=== PATIENT | male | born 1945 | race Caucasian/White ===

== ENCOUNTER → 2017-06-07 | Outpatient (CLI) | payer MEDICARE ==
--- NOTE | 2017-06-07 07:11 | MR ---
EXAMINATION TYPE: MR forearm RT wo con DATE OF EXAM: 06/07/2017 COMPARISON: NONE HISTORY: Pain in proximal rt forearm x 2 years, no known injury Standard multiplanar, multisequence MRI departmental protocol Multiplanar, multisequence images of the right forearm were acquired. FINDINGS: Scanning is performed from the distal humeral level through the distal diaphysis of radius and ulna. Bone marrow signal intensity is maintained. No suspicious edema is seen. Some mild spurring at elbow joint is present. Muscle bulk informed is felt maintained. No suspicious skin thickening or soft tissue swelling is see n. No worrisome focal fluid collection is identified. No obvious suspicious solid or cystic mass is p resent on noncontrast images. IMPRESSION: Unremarkable study. No significant finding is seen to account for patient's symptoms.
== END | disposition home or self-care (01) ==
LOC: RADMRIMAIN 06:09
PROVIDERS: ATTEND Orthopaedic Surgery
DX: M79.631 Pain in right forearm (principal); M77.11 Lateral epicondylitis, right elbow

== ENCOUNTER → 2017-11-04 | Outpatient (CLI) | payer MEDICARE ==
--- NOTE | 2017-11-04 15:30 | XR ---
EXAMINATION TYPE: XR chest 2V DATE OF EXAM: 11/04/2017 COMPARISON: NONE HISTORY: Cough for one week TECHNIQUE: Frontal and lateral views of the chest are obtained. FINDINGS: There is no focal air space opacity, pleural effusion, or pneumothorax seen. The cardiac silhouette size is within normal limits. Mild multilevel degenerative changes of the thoracic spine and acromioclavicular joints are noted. The osseous structures are intact. Pulmonary hyperinflation a nd slight flattening of the diaphragm suggests underlying COPD although could be related to degree of inspiration. Correlation with pulmonary function tests is recommended. IMPRESSION: No acute cardiopulmonary process. Correlation with pulmonary function tests is recommend ed to evaluate for underlying COPD.
== END ==
LOC: RADXRMAIN 14:53
PROVIDERS: ATTEND Internal Medicine
DX: R05 Cough (principal)
CPT/HCPCS: 71046

== ENCOUNTER → 2018-03-31 | Outpatient (CLI) | payer MEDICARE ==
[2018-03-31 16:46] LABS: Albumin 4.5 g/dL (3.80-4.90); Albumin/Globulin Ratio 2.5 (1.20-2.10); Anion Gap 4.9 mmol/L (4.00-12.00); Calcium 9.6 mg/dL (8.7-10.3); Carbon Dioxide 28.1 mmol/L (21.6-31.8); Globulin 1.8 g/dL (2.1-3.7); LDL Cholesterol,Calculated 67.4 mg/dL (0.0-131.0); Potassium 4.2 mmol/L (3.5-5.5); Total Bilirubin 1.1 mg/dL (0.2-1.2); Total Protein 6.3 g/dL (6.2-8.2); VLDL Calculation 18.6 mg/dL (5.00-40.00)
[2018-03-31 16:54] LABS: T4, Free (Free Thyroxine) 1.3 ng/dL (0.80-1.80)
== END | disposition home or self-care (01) ==
LOC: LABWHC1 07:28
PROVIDERS: ATTEND Internal Medicine Interventional Cardiology
DX: E78.2 Mixed hyperlipidemia (principal); E04.2 Nontoxic multinodular goiter
CPT/HCPCS: 36415; 80053; 80061; 84439; 84443

== ENCOUNTER → 2019-01-03 | Outpatient (CLI) | payer MEDICARE ==
--- NOTE | 2019-01-03 15:44 | MR ---
EXAMINATION TYPE: MR lumbar spine wo con DATE OF EXAM: 01/03/2019 COMPARISON: HISTORY: Low back pain TECHNIQUE: Multiplanar, multisequence images of the lumbar spine were acquired. Lumbar vertebra have normal alignment. There is slight decreased signal in the disks from L3 to S1. T here are small posterior disc herniations from L3 to S1 without significant impingement on the spinal canal. There is developmentally adequate canal. There is no compression fracture. Posterior elements are intact. The neuroforamina are generally well-maintained. Sacroiliac joints are intact. There is no lumbar paraspinal mass. I see no focal bone destruction. There is very slight narrowing of the rig ht side L5-S1 neural foramen due to facet disease and disc bulging. IMPRESSION: Spondylotic changes from L3 to S1 with small posterior disc herniations. No spinal stenosis. No fract ure. Very slight neural foraminal narrowing on the right side at L5-S1
== END | disposition home or self-care (01) ==
LOC: RADMRIMAIN 07:02
PROVIDERS: ATTEND Internal Medicine
DX: M48.07 Spinal stenosis, lumbosacral region (principal); M51.27 Other intervertebral disc displacement, lumbosacral region; M47.817 Spondylosis without myelopathy or radiculopathy, lumbosacral region
CPT/HCPCS: 72148

== ENCOUNTER → 2020-04-13 | Outpatient (CLI) | payer MEDICARE ==
--- NOTE | 2020-04-14 06:51 | MR ---
EXAMINATION TYPE: MR shoulder LT wo con DATE OF EXAM: 04/13/2020 COMPARISON: None. HISTORY: Pain in left shoulder and impingement. TECHNIQUE: Multiplanar, multisequence imaging of the left shoulder is performed without contrast. FINDINGS: Rotator Cuff: Full thickness retracted tear supraspinatus tendon to level of acromioclavicular joint coronal image 15. Fluid cleft noted. Infraspinatus tendon is intact. Subscapularis tendon intact. Mil d atrophy of supraspinatus muscle bulk. Acromioclavicular Joint: Moderate capsular hypertrophy and spurring. Loss of underlying fat plane and coronal image 9. Distal acromion morphology unremarkable. Glenohumeral Joint: Mild to moderate narrowing with tiny effusion. No significant spurring. Labrum: Superior labrum shows some increased signal consistent with degenerative tear coronal image 1 2. Biceps Tendon: The long head of biceps is in normal location within bicipital groove. Bone marrow signal: Tiny subchondral cystic change superolateral humeral head. Other: No additional significant abnormality is appreciated. IMPRESSION: AC joint arthropathy with underlying impingement. Full-thickness retracted tear supraspin atus tendon.
== END | disposition home or self-care (01) ==
LOC: RADMRIMAIN 17:54
PROVIDERS: ATTEND Orthopaedic Surgery
DX: M75.102 Unspecified rotator cuff tear or rupture of left shoulder, not specified as traumatic (principal); M19.012 Primary osteoarthritis, left shoulder

== ENCOUNTER → 2020-05-03 | Outpatient (CLI) | payer MEDICARE ==
[2020-05-03 12:58] LABS: African American GFR (CKD) 86.8 (60.0-200.0); Albumin 4.6 g/dL (3.80-4.90); Albumin/Globulin Ratio 2.42 (1.60-3.17); Anion Gap 7.2 mmol/L (4.00-12.00); Calcium 9.5 mg/dL (8.7-10.3); Carbon Dioxide 27.8 mmol/L (21.6-31.8); Chol/HDL Ratio 3.6; Globulin 1.9 g/dL (1.6-3.3); LDL Cholesterol,Calculated 73.2 mg/dL (0.0-131.0); Non-African American GFR(CKD) 74.9 (60.0-200.0); Potassium 4.2 mmol/L (3.5-5.5); Total Bilirubin 0.9 mg/dL (0.3-1.2); Total Protein 6.5 g/dL (6.2-8.2); VLDL Calculation 17.8 mg/dL (5.00-40.00)
[2020-05-03 13:04] LABS: T4, Free (Free Thyroxine) 1.2 ng/dL (0.80-1.80)
== END | disposition home or self-care (01) ==
LOC: LABWHC1 07:13
PROVIDERS: ATTEND Internal Medicine Interventional Cardiology
DX: E04.2 Nontoxic multinodular goiter (principal); E78.2 Mixed hyperlipidemia
CPT/HCPCS: 36415; 80053; 80061; 84439; 84443

== ENCOUNTER → 2020-05-04 | Outpatient (CLI) | payer MEDICARE ==
--- NOTE | 2020-05-04 07:48 | US ---
EXAMINATION TYPE: US thyroid st tissue head/neck DATE OF EXAM: 05/04/2020 COMPARISON: US November 30, 2013 CLINICAL HISTORY: E04.2 NONTOXIC MULTINODULAR GOITER. GLAND SIZE: Right Lobe: 5.7 x 3.3 x 3.3 cm Overall Parenchyma: heterogenous Left Lobe: 4.1 x 1.7 x 1.1 cm Overall Parenchyma: homogeneous Isthmus Thickness: 0.2 cm NODULES RIGHT: # of nodules measured on right: 0 Entire gland is heterogeneous without any normal tissue identified. LEFT: # of nodules measured on left: 1 1. 1.4 X 0.9 x 1.2 cm solid or almost completely solid, hypoechoic nodule, which is wider than tall , with smooth margins, with echogenic foci. Prior size: 1.0 x 0.8 x 0.8 cm Bilateral neck scanned, no evidence of lymphadenopathy. Markedly heterogeneous thyroid redemonstrated with asymmetric enlarged right thyroid lobe on current study. The lower pole left thyroid lobe solid nodule fairly stable when accounting for technical diff erences and was sampled in 2013. IMPRESSION: As above. No new concerning focal nodules identified.
== END | disposition home or self-care (01) ==
LOC: RADUSWWP 07:02
PROVIDERS: ATTEND Internal Medicine
DX: E04.1 Nontoxic single thyroid nodule (principal); E04.9 Nontoxic goiter, unspecified; E07.89 Other specified disorders of thyroid
CPT/HCPCS: 76536

== ENCOUNTER → 2020-10-31 | Outpatient (CLI) | payer MEDICARE ==
[2020-10-31 11:16] LABS: Chol/HDL Ratio 4.14
== END ==
LOC: LABWHC1 08:00
PROVIDERS: ATTEND Nurse Practitioner Adult Health
DX: E78.2 Mixed hyperlipidemia (principal)
CPT/HCPCS: 36415; 80061; 84450; 84460

== ENCOUNTER → 2021-03-08 | Outpatient (CLI) | payer MEDICARE ==
[2021-03-08 16:23] LABS: Chol/HDL Ratio 3.05 Ratio; HDL Cholesterol 41.7 mg/dL (40.00-60.00); LDL Cholesterol,Calculated 70.4 mg/dL (0.0-131.0); Triglycerides 74.7 mg/dL (0.00-149.00); VLDL Calculation 14.94 mg/dL (5.00-40.00)
== END | disposition home or self-care (01) ==
LOC: LABWHC1 07:42
PROVIDERS: ATTEND Nurse Practitioner Adult Health
DX: E78.2 Mixed hyperlipidemia (principal)
CPT/HCPCS: 36415; 80061; 84450; 84460

== ENCOUNTER 2021-03-15 10:15 | Day surgery (SDC) | payer MEDICARE ==
[2021-03-14 08:52] VITALS: BMI 22.8
[~2021-03-15 10:15] MED LIST: LACTATED RINGERS 1,000 ML IV SCH; LIDOCAINE 1% (10MG/ML) FOR IV START INTRADERMA PRN
[2021-03-15 10:44] VITALS: RESP 16; TEMP 97.8
[2021-03-15] MEDS ORDERED: PROPOFOL 10 MG/ML 20 ML VIAL IV ONE (11:18)
--- NOTE | 2021-03-15 11:54 | P.PCN ---
Date of Procedure: 03/15/21 Procedure(s) Performed: BRIEF HISTORY: Patient is a 75-year-old pleasant white male scheduled for an elective colonoscopy as a part of evaluation of prior history of colon polyps PROCEDURE PERFORMED: Colonoscopy. PREOPERATIVE DIAGNOSIS: History of colon polyps. IV sedation per Anesthesia. PROCEDURE: After informed consent was obtained, the patient, was brought into the endoscopy unit. IV sedation was administered by Anesthesia under continuous monitoring. Digital rectal examination was normal. Initially the Olympus CF-160 flexible video colonoscope was then inserted in the rectum, gradually advanced into the cecum without any difficulty. Careful examination was performed as the scope was gradually being withdrawn. Ileocecal valve and the appendiceal orifice were visualized and appeared normal. Prep was excellent. Mucosa of the cecum, ascending colon, transverse colon, descending colon, sigmoid colon, and rectum appeared normal. Retroflexion was performed in the rectum and monitor hemorrhoids were seen. The patient tolerated the procedure well. IMPRESSION: Normal-appearing colon from rectum to cecum with no evidence of colorectal neoplasia . RECOMMENDATIONS: Findings of this examination were discussed with the patient well as her family. He was advised to have a repeat colonoscopy in 5 years from now because of the prior history of colon polyps.
[2021-03-15 12:22] VITALS: BP 123/75; PULSE 61
== END 2021-03-15 12:43 | disposition home or self-care (01) ==
LOC: ORWHC2ENDO 10:15
PROVIDERS: ATTEND Internal Medicine Gastroenterology
DX: Z12.11 Encounter for screening for malignant neoplasm of colon (principal); Z86.010 Personal history of colon polyps; Z79.82 Long term (current) use of aspirin; Z79.899 Other long term (current) drug therapy; I10 Essential (primary) hypertension; Z98.42 Cataract extraction status, left eye; Z98.41 Cataract extraction status, right eye; Z98.890 Other specified postprocedural states
CPT/HCPCS: J2704; G0105; 45378

== ENCOUNTER → 2023-03-26 | Outpatient (CLI) | payer MEDICARE ==
[2023-03-26 11:13] LABS: ALT 15 U/L (10-49); AST 17 U/L (14-35); Albumin 4.5 g/dL (3.8-4.9); Albumin/Globulin Ratio 2.14 Ratio (1.60-3.17); Alkaline Phosphatase 62 U/L (41-126); BUN/Creat Ratio 17.42 Ratio (12.00-20.00); Blood Urea Nitrogen 20.9 mg/dL (9.0-27.0); Calcium 10.1 mg/dL (8.7-10.3); Carbon Dioxide 27.1 mmol/L (21.6-31.8); Chloride 106 mmol/L (96-109); Chol/HDL Ratio 3.42 Ratio; Globulin 2.1 g/dL (1.6-3.3); Glucose 143 mg/dL (70-110); LDL Cholesterol,Calculated 71.5 mg/dL (0.0-131.0); Potassium 4.7 mmol/L (3.5-5.5); Sodium 143 mmol/L (135-145); Total Bilirubin 0.4 mg/dL (0.3-1.2); Total Protein 6.6 g/dL (6.2-8.2)
== END | disposition home or self-care (01) ==
LOC: LABWHC1 07:34
PROVIDERS: ATTEND Internal Medicine Interventional Cardiology
DX: E78.2 Mixed hyperlipidemia (principal)
CPT/HCPCS: 36415; 80053; 80061

== ENCOUNTER → 2023-05-07 | Outpatient (CLI) | payer MEDICARE ==
[2023-05-07 10:48] LABS: HCT 39.8 % (39.6-50.0); HGB 13.8 g/dL (13.0-17.0); MCHC 34.7 g/dL (32.0-37.0); MCV 106.7 FL (80.0-97.0); Mean Platelet Volume 9.7 FL (9.5-12.2); NRBC Per 100 WBC 0 X 10*3/uL (0.00-0.01); Platelet Count 184 X 10*3/uL (140-440); RBC 3.73 X 10*6/uL (4.40-5.60); RDW 12.7 % (11.5-14.5); WBC 6.16 X 10*3/uL (4.50-10.00)
[2023-05-07 11:21] LABS: Basophils # (A) 0.04 X 10*3/uL (0.00-0.10); Basophils % (A) 0.6 %; Elliptocytes 2+; Eosinophils # (A) 0.31 X 10*3/uL (0.04-0.35); Lymphocytes # (A) 2.68 X 10*3/uL (0.90-5.00); Lymphocytes % (A) 43.5 %; Macrocytosis (M) 2+; Monocytes # (A) 0.46 X 10*3/uL (0.20-1.00); Monocytes % (A) 7.5 %; Neutrophils # (A) 2.65 X 10*3/uL (1.80-7.70); Neutrophils % (A) 43.1 %
[2023-05-07 11:31] LABS: ALT 16 U/L (10-49); AST 21 U/L (14-35); Albumin 4.5 g/dL (3.8-4.9); Albumin/Globulin Ratio 1.96 Ratio (1.60-3.17); Alkaline Phosphatase 67 U/L (41-126); Blood Urea Nitrogen 20.4 mg/dL (9.0-27.0); Calcium 10.1 mg/dL (8.7-10.3); Carbon Dioxide 26.4 mmol/L (21.6-31.8); Chloride 107 mmol/L (96-109); Chol/HDL Ratio 3.04 Ratio; Globulin 2.3 g/dL (1.6-3.3); Glucose 145 mg/dL (70-110); LDL Cholesterol,Calculated 73.3 mg/dL (0.0-131.0); Potassium 4.6 mmol/L (3.5-5.5); Sodium 144 mmol/L (135-145); Total Bilirubin 0.6 mg/dL (0.3-1.2); Total Protein 6.8 g/dL (6.2-8.2); VLDL Calculation 18.02 mg/dL (5.00-40.00)
== END | disposition home or self-care (01) ==
LOC: LABWHC1 07:21
PROVIDERS: ATTEND Internal Medicine Interventional Cardiology
DX: Z01.812 Encounter for preprocedural laboratory examination (principal); E78.2 Mixed hyperlipidemia; E11.9 Type 2 diabetes mellitus without complications; I25.10 Atherosclerotic heart disease of native coronary artery without angina pectoris; R07.9 Chest pain, unspecified
CPT/HCPCS: 80053; 80061; 82306; 83036; 84443; 85025

== ENCOUNTER 2023-05-08 06:22 | Day surgery (SDC) | payer MEDICARE ==
[2023-05-03 14:45] VITALS: BMI 21.2
[~2023-05-08 06:22] MED LIST changes: +ALPRAZolam 0.25 MG TAB PO PRN; +ALPRAZolam 0.5 MG TAB PO PRN; +ASPIRIN 325 MG TAB PO STA; +HEPARIN SODIUM,PORCINE (1 ML) 2,500 UNIT in SODIUM CHLORIDE 0.9% 250 ML IRRIGATION PRN; +HEPARIN SODIUM,PORCINE 10,000 UNIT in SODIUM CHLORIDE 0.9% 1,000 ML IRRIGATION PRN; -LACTATED RINGERS 1,000 ML IV SCH; -LIDOCAINE 1% (10MG/ML) FOR IV START INTRADERMA PRN; +NITROGLYCERIN SL TABS 0.4 MG TAB SUBLINGUAL PRN; +SODIUM CHLORIDE 0.9% 1,000 ML in EMPTY BAG 1 BAG IV SCH
[2023-05-08] MEDS: SODIUM CHLORIDE 0.9% 1,000 ML IV ONE (06:40)
[2023-05-08 07:02] LABS: Glucose,Whole Blood 131 mg/dL (70-110)
[2023-05-08 07:05] VITALS: RESP 16; TEMP 97.7
[2023-05-08] MEDS ORDERED: VERAPAMIL 2.5 MG/ML 2 ML AMP ONE (07:28)
[2023-05-08] MEDS ORDERED: fentaNYL (PF) 50 MCG/ML 2 ML AMP ONE (07:28)
[2023-05-08] MEDS ORDERED: LIDOCAINE 1% INJ 10MG/ML (20 ML MDV) ONE (07:28)
[2023-05-08] MEDS ORDERED: HEPARIN SODIUM 1,000 UN/ML (10ML VL) ONE (07:28)
[2023-05-08] MEDS: fentaNYL (PF) 50 MCG/ML 2 ML AMP IVP ONE (07:39)
[2023-05-08] MEDS: METOPROLOL TARTRATE 12.5 MG TAB PO STA (07:39)
[2023-05-08] MEDS: ISOSORBIDE MONONITRATE ER 30 MG TAB.ER.24H PO STA (07:39)
[2023-05-08] MEDS: LIDOCAINE 1% INJ 10MG/ML (20 ML MDV) SQ ONE (07:43)
[2023-05-08] MEDS: VERAPAMIL SYRINGE (5 MG/10 ML) INTRAARTER ONE (07:45)
[2023-05-08] MEDS: HEPARIN SODIUM 1,000 UN/ML (10ML VL) IV ONE (07:48)
[2023-05-08] MEDS ORDERED: CLOPIDOGREL 75 MG TAB ONE (07:53)
[2023-05-08] MEDS: CLOPIDOGREL 75 MG TAB PO ONE (07:55)
[2023-05-08] MEDS: NITROGLYCERIN 1000MCG/10ML SYRINGE INTRACORON ONE (08:03)
[2023-05-08] MEDS: IOPAMIDOL-370 100ML BTL INJ ONE ×2 (08:11→08:25)
[2023-05-08] MEDS ORDERED: ZOLPIDEM 5 MG TAB PO PRN (08:39)
[2023-05-08] MEDS ORDERED: NITROGLYCERIN SL TABS 0.4 MG TAB SUBLINGUAL PRN (08:39)
[2023-05-08] MEDS ORDERED: RX INFO: IV CONTRAST WAS GIVEN 1 EACH MISC MISCELLANE PRN (08:39)
[2023-05-08] MEDS ORDERED: MAG HYDROX/AL HYDROX/SIMETH 30 ML CUP PO PRN (08:39)
[2023-05-08] MEDS ORDERED: ATROPINE SULFATE 0.1 MG/ML 10ML SYRINGE IV PRN (08:39)
[2023-05-08] MEDS ORDERED: SODIUM CHLORIDE 0.9% 1,000 ML in EMPTY BAG 1 BAG IV SCH (08:45)
--- NOTE | 2023-05-08 08:54 | P.CARDCATH ---
Date of Procedure: 05/08/23 Description of Procedure: Cardiac Catheterization: The patient is a 77-year-old male with a known history of CAD who has been complaining of recent onset chest discomfort, exertional and with minimal activity. Recommendations were made regarding cardiac catheterization, the risks and the complications were discussed with the patient who is in full understanding and agreement. 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 Using Xylocaine Anesthesia and modified Seldinger technique, a 6-Niuean sheath was introduced in the right radial artery . Subsequently, selective coronary angiography was performed using a 5-Niuean 3.5 bend Collin catheter. Multiple views of the coronary artery including hemiaxial views were obtained. The 5-Niuean pigtail catheter was used to cross the aortic valve and LVEDP was calculated. PCI: After removing the catheters a 6-Niuean CLS 3.5 guiding catheter was introduced and the left main was cannulated. Subsequently 0.014 BMW J-wire was positioned in the distal LAD. A 2.25 x 12 mm NC Treck balloon was advanced and one inflation at 8 mirela was done. Subsequently a [employer] [place] eye IVUS catheter was introduced and images were obtained. After removing the catheter a 3.0 X23 mm Xience [place] stent was advanced and deployed at 16 mirela. After removing the balloon repeat IVUS imaging was performed and subsequently a 4.0 x 8 mm NC Treck balloon was advanced and one inflation in the proximal segment at 8 mirela was done. After removing the wire and the balloon images were obtained and revealed stable successful stenting. Following that, catheter and sheath were removed. Hemostasis was obtained with deployment of vascular band . There was no immediate complication. Patient was returned to room in stable condition. Of note, the patient received a total of 65 units of intravenous heparin as well as intra-arterial verapamil. He received an oral loading dose of clopidogrel. His ACT was monitored. He had chest discomfort and EKG changes with the inflations that resolved at the end of the procedure. Findings: Left main: This is a large size vessel, bifurcating into LAD and left circumflex, left main has no obstructive disease LAD: This is a large size vessel giving rise to a large diagonal branch proximally. After the diagonal takeoff there is a 99% stenosis. The rest of the vessel has no high-grade stenosis Left circumflex: This is a nondominant vessel, large in caliber, giving rise to a large obtuse marginal branch that has a 10-20% plaque, the rest of the vessel has no high-grade stenosis RCA: This is a moderately size dominant vessel. The stented segment in the distal LAD has tubular lesion of restenosis of 30%. There is no evidence of high-grade stenosis. Left Ventriculogram: Not performed Hemodynamics: There was no gradient across the aortic valve, LVEDP was 12-16 mmHg Conclusion: 1. Severe stenosis in the proximal LAD 2. Mild to moderate in-stent restenosis of the RCA 3. Mild disease in the left circumflex 4. Successful stenting of the proximal LAD with reduction of stenosis from 99% to 0% with intravascular ultrasound imaging Recommendations: The patient will continue on aspirin and Plavix without any interruption for 6 months in addition to aggressive coronary risks modifications. We will attempt to maintain LDL below 70 mg/dL. The findings and the recommendations were discussed with the patient and the family and they were in full understanding and agreement. Duration of sedation is 44 minutes.
[2023-05-08] MEDS: ACETAMINOPHEN TAB 500 MG TAB PO ONE (10:23)
[2023-05-08 13:03] VITALS: BP 142/68; PULSE 66
[2023-05-08] MEDS ORDERED: METOPROLOL TARTRATE 12.5 MG TAB PO SCH (21:00)
[2023-05-08] MEDS ORDERED: ATORVASTATIN 40 MG TAB PO SCH (21:00)
[2023-05-09] MEDS ORDERED: CLOPIDOGREL 75 MG TAB PO SCH (09:00)
[2023-05-09] MEDS ORDERED: ASPIRIN 81 MG PO SCH (09:00)
== END 2023-05-08 13:05 | disposition home or self-care (01) ==
LOC: CATHCVL 06:22
PROVIDERS: ATTEND Internal Medicine Interventional Cardiology
DX: I25.10 Atherosclerotic heart disease of native coronary artery without angina pectoris (principal); E78.5 Hyperlipidemia, unspecified; E11.9 Type 2 diabetes mellitus without complications; Z79.82 Long term (current) use of aspirin; Z79.899 Other long term (current) drug therapy; Z79.84 Long term (current) use of oral hypoglycemic drugs
CPT/HCPCS: 99152; 99153 ×2; 92978; 93458; C9600; C1769 ×3; C1887; C1894; C1753; C1874; C1725 ×2; J2001; J3010; J1644; Q9967; J2305

== ENCOUNTER → 2023-08-13 | Outpatient (CLI) | payer MEDICARE ==
[2023-08-13 12:34] LABS: ALT 21 U/L (10-49); AST 20 U/L (14-35); Albumin 4.3 g/dL (3.8-4.9); Albumin/Globulin Ratio 1.65 Ratio (1.60-3.17); Alkaline Phosphatase 73 U/L (41-126); BUN/Creat Ratio 18.33 Ratio (12.00-20.00); Calcium 10.2 mg/dL (8.7-10.3); Carbon Dioxide 27.4 mmol/L (21.6-31.8); Chloride 107 mmol/L (96-109); Chol/HDL Ratio 3.51 Ratio; Globulin 2.6 g/dL (1.6-3.3); Glucose 145 mg/dL (70-110); LDL Cholesterol,Calculated 70.9 mg/dL (0.0-131.0); Potassium 5.2 mmol/L (3.5-5.5); Sodium 143 mmol/L (135-145); Total Bilirubin 0.5 mg/dL (0.3-1.2); Total Protein 6.9 g/dL (6.2-8.2)
== END | disposition home or self-care (01) ==
LOC: LABWHC1 07:43
PROVIDERS: ATTEND Internal Medicine Interventional Cardiology
DX: E78.2 Mixed hyperlipidemia (principal)
CPT/HCPCS: 36415; 80053; 80061

== ENCOUNTER → 2023-09-26 | Outpatient (CLI) | payer MEDICARE ==
[2023-09-26 15:36] LABS: T4, Free (Free Thyroxine) 1.57 ng/dL (0.80-1.80)
== END | disposition home or self-care (01) ==
LOC: LABWHC1 08:04
PROVIDERS: ATTEND Internal Medicine
DX: E05.90 Thyrotoxicosis, unspecified without thyrotoxic crisis or storm (principal)
CPT/HCPCS: 36415; 84439; 84443; 84445; 84481; 86376

== ENCOUNTER 2024-03-04 05:38 | Day surgery (SDC) | payer MEDICARE ==
[2024-03-02 17:49] VITALS: BMI 21.6
[2024-03-04] MEDS ORDERED: ALPRAZolam 0.25 MG TAB PO PRN (06:09)
[2024-03-04] MEDS ORDERED: ALPRAZolam 0.5 MG TAB PO PRN (06:09)
[2024-03-04] MEDS ORDERED: NITROGLYCERIN SL TABS 0.4 MG TAB SUBLINGUAL PRN (06:09)
[2024-03-04] MEDS: SODIUM CHLORIDE 0.9% 1,000 ML in EMPTY BAG 1 BAG IV SCH (06:31)
[2024-03-04] MEDS: SODIUM CHLORIDE 0.9% 1,000 ML IV ONE (06:32)
[2024-03-04 06:36] VITALS: TEMP 98
[2024-03-04 06:37] LABS: Glucose,Whole Blood 123 mg/dL (70-110)
[2024-03-04 06:38] LABS: Basophils % (A) 0 %; Eosinophils # (A) 0.4 k/uL (0-0.7); Eosinophils % (A) 6 %; HCT 39.6 % (39.0-53.0); HGB 13.1 gm/dL (13.0-17.5); Lymphocytes # (A) 2.6 k/uL (1.0-4.8); Lymphocytes % (A) 39 %; MCH 35.7 pg (25.0-35.0); MCV 108.4 fL (80.0-100.0); Macrocytosis Moderate; Mean Platelet Volume 7.3; Monocytes # (A) 0.4 k/uL (0-1.0); Monocytes % (A) 6 %; Neutrophils # (A) 3.1 k/uL (1.3-7.7); Neutrophils % (A) 46 %; Platelet Count 177 k/uL (150-450); RBC 3.66 m/uL (4.30-5.90); RDW 12.6 % (11.5-15.5); WBC 6.7 k/uL (3.8-10.6)
[2024-03-04] MEDS ORDERED: HEPARIN SODIUM,PORCINE 10,000 UNIT in SODIUM CHLORIDE 0.9% 1,000 ML IRRIGATION PRN (07:00)
[2024-03-04] MEDS ORDERED: HEPARIN SODIUM,PORCINE (1 ML) 2,500 UNIT in SODIUM CHLORIDE 0.9% 250 ML IRRIGATION PRN (07:00)
[2024-03-04] MEDS ORDERED: ASPIRIN 325 MG TAB PO ONE (07:00)
[2024-03-04] MEDS ORDERED: ATORVASTATIN 80 MG TAB PO ONE (07:00)
[2024-03-04 07:01] LABS: African American GFR (CKD) 76 (>60 ml/min/1.73 sqM); Anion Gap 6 mmol/L; Blood Urea Nitrogen 21 mg/dL (9-20); Calcium 9.6 mg/dL (8.4-10.2); Carbon Dioxide 26 mmol/L (22-30); Chloride 108 mmol/L (98-107); Glucose 124 mg/dL (74-99); Non-African American GFR(CKD) 66 (>60 ml/min/1.73 sqM); Potassium 3.8 mmol/L (3.5-5.1); Sodium 140 mmol/L (137-145)
[2024-03-04] MEDS: fentaNYL (PF) 50 MCG/ML 2 ML AMP IVP ONE (07:30)
[2024-03-04] MEDS: LIDOCAINE 1% INJ 10MG/ML (20 ML MDV) SQ ONE (07:32)
[2024-03-04] MEDS: VERAPAMIL SYRINGE (5 MG/10 ML) INTRAARTER ONE (07:35)
[2024-03-04] MEDS: HEPARIN SODIUM 1,000 UN/ML (10ML VL) IVP ONE (07:38)
[2024-03-04] MEDS: HEPARIN SODIUM,PORCINE (1 ML) 2,500 UNIT in SODIUM CHLORIDE 0.9% 250 ML IRRIGATION ONE (07:46)
[2024-03-04] MEDS: HEPARIN SODIUM,PORCINE 10,000 UNIT in SODIUM CHLORIDE 0.9% 1,000 ML IRRIGATION ONE (07:46)
[2024-03-04] MEDS: IOPAMIDOL-370 100ML BTL INJ ONE (07:50)
[2024-03-04] MEDS ORDERED: RX INFO: IV CONTRAST WAS GIVEN 1 EACH MISC MISCELLANE PRN (08:10)
[2024-03-04] MEDS ORDERED: SODIUM CHLORIDE 0.9% 1,000 ML IV SCH (08:15)
--- NOTE | 2024-03-04 08:19 | P.CARDCATH ---
Date of Procedure: 03/04/24 Description of Procedure: Cardiac Catheterization: The patient is a 78-year-old male with known history of diabetes, hyperlipidemia, known history of CAD status post stenting of the RCA in 1998 and stenting of the proximal LAD in April 2023 who presented with symptoms of recurrent exertional chest discomfort over the last few weeks. Recommendations were made regarding cardiac catheterization, the risks and the complications were discussed with the patient who is in full understanding and agreement. 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 Using Xylocaine Anesthesia and modified Seldinger technique, a 6-Ecuadorean sheath was introduced in the right radial artery . Subsequently, selective coronary angiography was performed using a 5-Ecuadorean 3.5 bend Collin catheter. Multiple views of the coronary artery including hemiaxial views were obtained. The 6 Ecuadorean pigtail catheter was used to cross the aortic valve and LVEDP was calculated. Following that, catheter and sheath were removed. Hemostasis was obtained with deployment of vascular band . There was no immediate complication. Patient was returned to room in stable condition. Of note, the patient received a total of 3500 units of intravenous heparin as well as intra-arterial verapamil. Findings: Left main: This is a large size vessel, bifurcating into LAD and left circumflex, left main has no obstructive disease LAD: This is a large size vessel, reaching to the apex with a wraparound apex segment. The stented segment in the proximal LAD is patent. Proximal to the stent there is a 20 to 30% plaque. The mid and distal vessel is diffusely disease with no focal disease in the area of stenosis up to 60%. The takeoff of the first obtuse marginal branch which is moderate in caliber has an 80 to 90% stenosis, it is jailed in the stent. It has a JANICE-3 flow. Left circumflex: This is a nondominant vessel, large in caliber, giving rise to a large obtuse marginal branch, the left circumflex and its branches have no significant obstructive disease RCA: This is a large dominant vessel, giving rise to a PDA distally. The stented segment in the distal RCA is patent there is a 50 to 60% tubular in-sten t restenosis with no progression of disease compared to 2023 Left Ventriculogram: Not performed Hemodynamics: There was no gradient across aortic valve, LVEDP was 14-16 mmHg Conclusion: 1. Patent stent in the proximal LAD with evidence of diffuse disease distally and significant disease at the ostium of the diagonal branch and no progression compared to April 2023 2. Moderate in-stent restenosis of the distal RCA with no changes since April 3. No high-grade stenosis in the left circumflex 4. Right dominance Recommendations: I have recommended to optimize medical therapy at this time, patient could not tolerate nitrate in the past, ranolazine will be added to his regimen. Depending on his symptoms further recommendations will be made. The findings and the recommendations were discussed with the patient and the family and they were in full understanding and agreement. Duration of sedation is 19 minutes.
[2024-03-04] MEDS ORDERED: RANOLAZINE 500 MG TAB.ER.12H PO SCH (09:00)
[2024-03-04] MEDS ORDERED: METOPROLOL TARTRATE 12.5 MG TAB PO SCH (09:00)
[2024-03-04 12:03] VITALS: RESP 16
[2024-03-04 12:06] VITALS: BP 106/55; PULSE 56
[2024-03-05] MEDS ORDERED: ASPIRIN 81 MG PO SCH (21:00)
[2024-03-05] MEDS ORDERED: ATORVASTATIN 40 MG TAB PO SCH (21:00)
== END 2024-03-04 12:00 | disposition home or self-care (01) ==
LOC: CATHCVL 05:38
PROVIDERS: ATTEND Internal Medicine Interventional Cardiology
DX: I25.10 Atherosclerotic heart disease of native coronary artery without angina pectoris (principal); E11.9 Type 2 diabetes mellitus without complications; E78.2 Mixed hyperlipidemia; Z95.5 Presence of coronary angioplasty implant and graft; Z79.82 Long term (current) use of aspirin; Z79.02 Long term (current) use of antithrombotics/antiplatelets; Z79.84 Long term (current) use of oral hypoglycemic drugs; Z79.899 Other long term (current) drug therapy
CPT/HCPCS: 93458; 80048; 85025; C1769 ×2; C1894; J1644 ×3; J2003; J3010; Q9967

== ENCOUNTER 2024-11-11 08:31 | Day surgery (SDC) | payer MEDICARE ==
[~2024-11-11 08:31] MED LIST changes: -ASPIRIN 325 MG TAB PO STA; -HEPARIN SODIUM,PORCINE (1 ML) 2,500 UNIT in SODIUM CHLORIDE 0.9% 250 ML IRRIGATION PRN; -HEPARIN SODIUM,PORCINE 10,000 UNIT in SODIUM CHLORIDE 0.9% 1,000 ML IRRIGATION PRN; -SODIUM CHLORIDE 0.9% 1,000 ML in EMPTY BAG 1 BAG IV SCH
[2024-11-11 09:02] LABS: Glucose,Whole Blood 133 mg/dL (70-110)
[2024-11-11] MEDS: SODIUM CHLORIDE 0.9% 1,000 ML in EMPTY BAG 1 BAG IV SCH ×2 (09:03→17:33)
[2024-11-11] MEDS: ASPIRIN 325 MG TAB PO STA (09:03)
[2024-11-11] MEDS: IV FLUID CONTINUATION 1,000 ML IV ONE (09:07)
[2024-11-11 09:12] LABS: Basophils # (A) 0.03 10*3/uL (0.00-0.10); Basophils % (A) 0.4 %; Eosinophils # (A) 0.20 10*3/uL (0.04-0.35); Eosinophils % (A) 2.8 %; HCT 36.7 % (39.6-50.0); HGB 13.0 g/dL (13.0-17.0); Lymphocytes # (A) 2.06 10*3/uL (0.90-5.00); Lymphocytes % (A) 28.6 %; MCH 38.0 pg (27.0-32.0); MCHC 35.4 g/dL (32.0-37.0); MCV 107.3 fL (80.0-97.0); Monocytes # (A) 0.55 10*3/uL (0.20-1.00); Monocytes % (A) 7.6 %; Neutrophils # (A) 4.35 10*3/uL (1.80-7.70); Neutrophils % (A) 60.5 %; Platelet Count 171 10*3/uL (140-440); RBC 3.42 10*6/uL (4.40-5.60); RDW 12.3 % (11.5-14.5); WBC 7.20 10*3/uL (4.50-10.00)
[2024-11-11 09:23] LABS: African American GFR (CKD) 79 (>60 ml/min/1.73 sqM); Anion Gap 10 mmol/L; Blood Urea Nitrogen 21 mg/dL (9-20); Calcium 9.8 mg/dL (8.4-10.2); Carbon Dioxide 24 mmol/L (22-30); Chloride 108 mmol/L (98-107); Glucose 134 mg/dL (74-99); Non-African American GFR(CKD) 69 (>60 ml/min/1.73 sqM); Potassium 4.3 mmol/L (3.5-5.1); Sodium 142 mmol/L (137-145)
[2024-11-11 11:03] LABS: Anisocytosis (M) Present
[2024-11-11] MEDS: fentaNYL (PF) 50 MCG/ML 2 ML AMP IVP ONE (11:05)
[2024-11-11] MEDS: LIDOCAINE 1% INJ 10MG/ML (20 ML MDV) SQ ONE (11:06)
[2024-11-11] MEDS: VERAPAMIL SYRINGE (5 MG/10 ML) INTRAARTER ONE (11:07)
[2024-11-11] MEDS: HEPARIN SODIUM 1,000 UN/ML (10ML VL) IVP ONE ×3 (11:12→11:39)
[2024-11-11] MEDS: HEPARIN SODIUM,PORCINE 10,000 UNIT in SODIUM CHLORIDE 0.9% 1,000 ML IRRIGATION PRN (11:14)
[2024-11-11] MEDS: HEPARIN SODIUM,PORCINE (1 ML) 2,500 UNIT in SODIUM CHLORIDE 0.9% 250 ML IRRIGATION PRN (11:14)
[2024-11-11] MEDS: NITROGLYCERIN 1000MCG/10ML SYRINGE INTRACORON ONE (11:32)
[2024-11-11] MEDS: CLOPIDOGREL 75 MG TAB PO ONE (11:39)
[2024-11-11] MEDS: MIDAZOLAM 2 MG/2 ML VIAL IVP ONE (12:03)
[2024-11-11] MEDS: IOPAMIDOL-370 100ML BTL INJ ONE ×2 (12:04→12:05)
[2024-11-11] MEDS ORDERED: NITROGLYCERIN SL TABS 0.4 MG TAB SUBLINGUAL PRN (12:19)
[2024-11-11] MEDS ORDERED: ATROPINE SULFATE 0.1 MG/ML 10ML SYRINGE IV PRN (12:19)
[2024-11-11] MEDS ORDERED: RX INFO: IV CONTRAST WAS GIVEN 1 EACH MISC MISCELLANE PRN (12:19)
[2024-11-11] MEDS ORDERED: MAG HYDROX/AL HYDROX/SIMETH 30 ML CUP PO PRN (12:19)
[2024-11-11] MEDS ORDERED: ZOLPIDEM 5 MG TAB PO PRN (12:19)
--- NOTE | 2024-11-11 12:29 | P.CARDCATH ---
Date of Procedure: 11/11/24 Description of Procedure: Cardiac Catheterization: The patient is a 79-year-old male with known history of hyperlipidemia, diabetes mellitus, CAD status post stenting of the RCA in 1998 in the LAD in 2023 who presents with recurrent episodes of angina pectoris, limiting his physical activity. Recommendations were made regarding cardiac catheterization, the risks and the complications were discussed with the patient who is in full understanding and agreement. 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 Using Xylocaine Anesthesia and modified Seldinger technique, a 6-Belgian sheath was introduced in the left radial artery . Subsequently, selective coronary angiography was performed using a 5-Belgian 4 bend Collin catheter. Multiple views of the coronary artery including hemiaxial views were obtained. The 5 Belgian pigtail catheter was used to cross the aortic valve and LVEDP was calculated. PCI: After removing the catheters a 6 Belgian CLS 3.5 guiding catheter was introduced into the system and after cannulating the left main an Omni Doppler flow wire was introduced in the distal LAD and IFR was measured at 0.68. At that point a 2.25 x 12 mm trek balloon was advanced and 1 inflation at 8 mirela was done. After removing the balloon a [place] eye IVUS catheter was introduced and images were obtained and revealed the distal lumen measuring 2.25 to 2.4 mm in diameter and proximally 2.5 mm in diameter with mild calcifications. After removing the catheter a 2.25 x 28 mm Xience [place] stent was deployed at 16 mirela. Repeat IVUS imaging was performed and revealed good apposition distally with some under deployment proximally, subsequently a 2.5 x 20 mm NC trek balloon was advanced and 1 inflation in the proximal segment at 12 mirela was done. After the last inflation the wire was removed and images were obtained and revealed stable successful stenting. Following that, catheter and sheath were removed. Hemostasis was obtained with deployment of vascular band . There was no immediate complication. Patient was returned to room in stable condition. Of note, the patient received a total of 6500 units of intravenous heparin as well as intra-arterial verapamil. He received an oral loading dose of clopidogrel. His ACT was monitored. He had EKG changes and chest discomfort with the inflations that improved at the end of the procedure. Findings: Fluoroscopy: Calcification of the LAD and RCA was noted Left main: This is a large size vessel, bifurcating into LAD and left circumflex, left main has no obstructive disease. LAD: This is a large size vessel, reaching to the apex with a wraparound apex segment. The proximal stented segment of the LAD is patent with mild in-stent restenosis of 10 to 20%. The mid segment has a tubular lesion with area of stenosis up to 70% the distal vessel has no high-grade stenosis. The first diagonal branch that is a jailed branch has a 60 to 70% stenosis at the takeoff. Left circumflex: This is a large size nondominant vessel giving rise to a large obtuse marginal branch. The left circumflex has no evidence of high-grade stenosis. RCA: This is a large dominant vessel, bifurcating into PDA and PLV. The mid RCA has 20% plaque the stented segment in the distal RCA and the PDA has tubular lesion with in-stent restenosis of about 50% with no progression. Left Ventriculogram: Not performed Hemodynamics: There was no gradient across, LVEDP was 8-12 mmHg Conclusion: 1. Calcified coronary arteries 2. Hemodynamically significant stenosis in the mid LAD with IFR of 0.68 3. Moderate in-stent restenosis of the RCA 4. Successful stenting of the mid LAD with reduction of stenosis from 70% to less than 5% with IVUS imaging and JANICE-3 flow. Recommendations: The patient will continue on aspirin and clopidogrel for 6 months without any interruption in addition to aggressive coronary risks modifications, maintaining LDL below 70 mg/dL. The findings and the recommendations were discussed with the patient and the family and they were in full understanding and agreement. Duration of sedation is 59 minutes.
[2024-11-11] MEDS: SODIUM CHLORIDE 0.9% 1,000 ML IV ONE (15:38)
[2024-11-11] MEDS: RANOLAZINE 500 MG TAB.ER.12H PO SCH (20:56)
[2024-11-11] MEDS: ATORVASTATIN 40 MG TAB PO SCH (20:56)
[2024-11-11] MEDS: METOPROLOL TARTRATE 12.5 MG TAB PO SCH (20:56)
[2024-11-12 02:08] VITALS: PULSE 65
--- NOTE | 2024-11-12 07:24 | P.PN ---
Subjective Progress Note Date: 11/12/24 PROGRESS NOTE The patient is a 79-year-old male with a known history of CAD, hyperlipidemia who presented with persistent exertional chest discomfort, he underwent cardiac catheterization and was found to have patent stent in the proximal LAD with moderate severe stenosis in the mid LAD was positive IFR. He underwent stenting of the mid LAD. He is feeling well this morning, he denies any chest discomf ort, dizziness or palpitations. He denies any nausea or vomiting. He continues to be in sinus mechanism. Medications: Aspirin, Plavix 75 mg daily, Ranexa 500 mg twice a day, metoprolol tartrate 12- 1/2 mg twice a day, Lipitor 40 mg daily PHYSICAL EXAMINATION: Blood pressure 101/70 heart rate 60 LUNGS: Clear to auscultation HEART: Regular rate and rhythm, S1, S2. No S3. Systolic ejection murmur, 2/6 at the base ABDOMEN: Soft, nontender, no organomegaly EXTREMETIES: No edema, left radial pulse intact. LAB: EKG with sinus mechanism and no acute ST segment changes IMPRESSION: 1. Status post stenting of the mid LAD 2. Prior history of stenting of the proximal LAD and RCA 3. Hyperlipidemia 4. Diabetes PLAN: 1. The patient will be discharged home today 2. Continue present therapy and resume metformin in 48 hours 3. Follow-up in 1 week Objective - Vital Signs Vital signs: Vital Signs Temp 98.4 F 11/12/24 01:34 Pulse 65 11/12/24 01:34 Resp 15 11/12/24 01:34 BP 101/71 11/12/24 01:34 Pulse Ox 96 11/12/24 01:34 FiO2 Intake & Output 11/11/24 11/12/24 11/12/24 18:59 06:59 18:59 Intake Total 1128 Balance 1128 Weight 65.6 kg Intake: IV 1010 Oral 118 Other: Voiding Method Toilet # Voids 1 - Labs CBC & Chem 7: 11/11/24 09:06 11/11/24 09:06 Labs: Abnormal Lab Results - Last 24 Hours (Table) 11/11/24 11/11/24 11/11/24 Range/Units 09:01 09:06 09:06 RBC 3.42 L (4.40-5.60) 10*6/uL Hct 36.7 L (39.6-50.0) % MCV 107.3 H (80.0-97.0) fL MCH 38.0 H (27.0-32.0) pg MPV 9.3 L (9.5-12.2) fL Chloride 108 H (98-107) mmol/L BUN 21 H (9-20) mg/dL Glucose 134 H (74-99) mg/dL POC Glucose (mg/dL) 133 H (70-110) mg/dL
[2024-11-12 07:36] LABS: African American GFR (CKD) 79 (>60 ml/min/1.73 sqM); Anion Gap 3 mmol/L; Blood Urea Nitrogen 17 mg/dL (9-20); Calcium 9.1 mg/dL (8.4-10.2); Carbon Dioxide 26 mmol/L (22-30); Chloride 109 mmol/L (98-107); Glucose 113 mg/dL (74-99); Non-African American GFR(CKD) 69 (>60 ml/min/1.73 sqM); Potassium 4.3 mmol/L (3.5-5.1); Sodium 138 mmol/L (137-145)
[2024-11-12] MEDS: CLOPIDOGREL 75 MG TAB PO SCH (07:45)
[2024-11-12] MEDS: ASPIRIN 81 MG PO SCH (07:45)
[2024-11-12 08:23] VITALS: BP 117/64; RESP 16; TEMP 98.2
[2024-11-12 10:18] VITALS: BMI 21.9
== END 2024-11-12 10:32 | disposition home or self-care (01) ==
LOC: CATHCVL 08:31 → 6NMEDSUR 12:06 → CATHCVL 11-12 10:32
PROVIDERS: ATTEND Internal Medicine Interventional Cardiology
DX: T82.855A Stenosis of coronary artery stent, initial encounter (principal); I35.0 Nonrheumatic aortic (valve) stenosis; I25.10 Atherosclerotic heart disease of native coronary artery without angina pectoris; E11.9 Type 2 diabetes mellitus without complications; E78.2 Mixed hyperlipidemia; Z79.82 Long term (current) use of aspirin; Z79.899 Other long term (current) drug therapy; Z87.891 Personal history of nicotine dependence; Y83.8 Other surgical procedures as the cause of abnormal reaction of the patient, or of later complication, without mention of misadventure at the time of the procedure
CPT/HCPCS: 92978; 93458; 93799; 80048 ×2; 85025; 99152; 99153; C9600; C1887; C1769 ×3; C1894; C1725 ×2; C1874; C1753; J2250; J1644 ×3; J2003; J3010; Q9967; J2305